=== PATIENT | male | born 2000 ===

== ENCOUNTER 2025-04-03 14:34 | Inpatient (IN) | payer OTHER ==
[~2025-04-03] VITALS: Ht 175.3 cm; Wt 75.0 kg
[2025-04-03] MEDS ORDERED: Ondansetron 4 MG SoluTab MM PRN (15:45)
[2025-04-03] MEDS ORDERED: Polyethylene Glycol 3350 17 gm PO PRN (15:45)
[2025-04-03] MEDS ORDERED: DiphenhydrAMINE HCl 50 MG/ML 1ML Vial IM PRN (15:50)
[2025-04-03] MEDS ORDERED: LORazepam 2 MG/ML 1ML Injection IM PRN (15:50)
[2025-04-03] MEDS ORDERED: FLU VACC TS2025-26(6MOS UP)/PF 45 MCG/0.5 ML SYRINGE IM SCH (15:50)
[2025-04-03] MEDS ORDERED: Haloperidol Lactate Inj. 5 MG/ML Injection IM PRN (15:50)
[2025-04-03] MEDS ORDERED: Aluminum Hydroxide 320MG/5ML 473 ML PO PRN (15:50)
--- NOTE | 2025-04-03 16:28 | NUR ---
PRN ATIVAN, BENADRYL, AND HALODOL GIVEN FOR MASS SCORE GREATER THAN 9. [facility] CALLED AND STATED THAT PATIENT WAS SPITTING AND HITTING VAN HANSEN, REQUESTED EXTRA STAFF. ON ARRIVAL PT GREATED BY [facility] RNS AND STAFF. HE WAS ABLE TO AGREE TO REMAIN CALM WHEN WE OPENED VAN DOOR. HE WAS ABLE TO FOLLOW INSTUCTIONS. HE APPEARED ANXIOUS AND JUMPY. PT TENSE AND APPEARED GAURDED AROUND STAFF. THIS RN OFFERED MEDICATION TO HELP WITHH TRANSITION. PT ACCEPTED IM B52 GIVEN IN LEFT AND RIGHT DELTOID. PT TOLERATED WELL
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
[2025-04-03] MEDS ORDERED: Guaifenesin/Dextromethorphan Syrup 5 ML UDC PO ONE (17:00)
[2025-04-03] MEDS ORDERED: Guaifenesin/Dextromethorphan Syrup 5 ML UDC PO PRN (17:10)
--- NOTE | 2025-04-04 03:55 | NUR ---
HALDOL, BENEDRYL AND ATIVAN GIVEN PO AT 0343 FOR AGGRESSIVE POSTURING TOWARDS THE NURSING STAFF. SECURITY PRESENT AT THE TIME AND FOR APPROXIMATELY 20 MINUTES AFTER THE EVENT.
--- NOTE | 2025-04-04 04:34 | NUR ---
Patient slept through the evening until snack time and briefly got up for that. When asked about SI,HI and AVTH, the patient wouldn't give appropriate answers. he stated "you are not a doctor, so you don't need to know". Patient then promptly went back to bed. At 0333, patient came to the desk asking for a snack and a drink. When told he would only get a drink, he agreed to this, then poured his water in a line all the way down the pickering. He threatened to "sock something up" then began spitting on the floor. When this RN and the MHA got down to his room, he began saying that we were both going to and hissing at us. Security was called and an oral dose of Haldol, Ativan and Benedryl were given to assist in calming the patient. Security stayed at the door of the patient's room until he fell back to sleep. Will continue close observation every 15 minutes for safety and comfort per unit protocol
[2025-04-04 08:44] VITALS: BP 142/131
[2025-04-04] MEDS ORDERED: Multivitamins 1 Tab PO SCH (09:00)
--- NOTE | 2025-04-04 11:57 | NUR ---
PRN INFORMATION PT CAME TO RN DEST APPROX 0830, STANDING THERE STARING AT STAFF NOT SAYING ANYTHING. HE STARTED COUGHING, HE WAS ASKED TO STEP AWAY FROM THE DESK AND TO COVER HIS FACE, HE SPIT SNOT ONTO THE FLOOR, ASKED HIM TO CLEAN IT UP. HE WALKED UP AND DOWN THE BUSTILLO AND STARTED YELLING. HE STOOD IN THE DOORWAY OF ROOM 603 AND SPIT SNOT INTO THE ROOM ON THE FLOOR. WHEN ASKED WHY HE DID THAT, HE STATED "OH, I THOUGHT IT WAS MY ROOM" JUST BEFORE BKFT "I NEED SOMETHING TO CALM ME DOWN". THIS WAS 10ish MINUTES AFTER THE SAME WAS OFFERED TO HIM. HE STOOD CALMLY WHILE RECEIVING IM ATIVAN, HALDOL AND BENEDRYL AND THEN WENT TO BKFT. DURING BKFT HE WAS VERY DISRUPTIVE, PEERS WERE GETTING AND MOVING AWAY FROM HIM. HE STATED "WHAT THE FUCK IS THIS, IS THIS ALL I GET". THIS RN EXPLAINED TO PT THAT HE WAS RECEIVING DOUBLE PORTIONS OF FOOD. PT CONTINUED "YOU EXPECT ME TO EAT THIS SHIT, THIS IS THE [facility] AND THIS FOOD IS FUCKING DISGUSTING". HE SPENT TIME STABBING AT HIS FOOD, STIRRING IT AROUND, MAKING A MESS, SPITTING SNOT INTO HIS FOOD AND THEN EATING IT. PT THEN ALEKSANDER TO HIS ROOM AND SLEPT UNTIL 1030ish. HE CAME TO RN DESK WANTING FOOD. HE WAS TOLD SNACK WOULD BE AT 1045. HE SPIT ON THE FLOOR, ON THE WALL INFRONT OF CASTING MACHINE OPERATOR DESK. HE WAS GIVEN TISSUE TO CLEAN IT UP WHICH HE DID. HE WAS OFFERED ZYPREXA. HE WAS GIVEN 20 MG PO ZYPREXA, DUMPED THE REST OF THE WATER ON THE FLOOR AND THEN WENT TO SNACK. HE IS PRESENTLY SLEEPING IN HIS ROOM.
--- NOTE | 2025-04-04 15:28 | NUR ---
PRN INFORMATION PT SLEPT THROUGH LUNCH, HE WAS OFFERED TO GET UP x4 TIMES. ON THE 4TH TIME HE ROLLED OVER AND STATED TO THIS RN "I DON'T WANT LUNCH". AT 1440 HE WOKE AND CAME TO RN STATION. STATED "I WANT MY BKFT" HE WAS INFORMED THAT HE HAD BKFT THIS MORNING BUT THAT HE MISSED LUNCH. HE SCREAMED "I DIDN'T GET ANY FUCKING BKFT" EXPLAINED TO PT THAT HE MISSED LUNCH. HE STARTED PUNCHING THE WALL AND THEN SLAMING HIS FOREHEAD INTO THE PLEXIGLASS AT THE CONTINUITY DIRECTOR DESK. HE THEN LUNGED AT THE DESK AND IT APPEARED HE WAS GOING TO TRY AND COME OVER THE BARRIER. PER DIRECTOR, PT WAS GIVEN A SANDWICH AND CUPCAKE. HE WAS COOPERATIVE AND TOOK AN ORAL ATIVAN, HALDOL AND BENEDRYL WE WERE OUT OF IM ATIVAN. HE WAS VERBALIZING RACIAL SLURS TO STAFF "YOU ALL A BUNCH OF DUMB ASS NIGGERS" PT IS BACK IN HIS ROOM AND APPEARS TO BE SLEEPING AT THIS TIME.
--- NOTE | 2025-04-04 17:49 | NUR ---
SHIFT SUMMARY PLEASE SEE PREVIOUS LAST 2 ENTRIES. SINCE LAST ENTRY PT HAS CONTINUED TO SLEEP. THIS RN ATTEMPTED TO WAKE PT FOR DINNER, KNOCKED LOUDLY, CALLED HIS NAME, TELLING HIM IT WAS DINNER, SHOOK HIS FOOT, HE MOVED SLIGHTLY AND CONTINUED TO SNORE. PER DIRECTOR, WE ALLOWED HIM TO SLEEP AND WHEN HE DOES WAKE, FEED HIM NO MATTER WHAT TIME IT IS AND OFFER MEDS AT THE SAME TIME. THERE WAS NO OFFICAL PATIENT ASSESSMENT BY THIS RN TODAY.
--- NOTE | 2025-04-04 20:41 | NUR ---
At 2015, Patient MASS score was 9. Oral doses of Ativan, Haldol and Diphenhydramine were given as well as patient's scheduled dose of 10mg Zyprexa. Patient tolerated well and came to kitchen to have a snack and call his mother, Gina. After snack, patient went back to bed. Will continue close monitoring every 15 minutes for safety and comfort per unit protocol
--- NOTE | 2025-04-05 04:38 | NUR ---
PATIENT SLEEPING AT STAART OF SHIFT. THEN, AT APPROXIMATELY 1999, PATIENT WOKE AND CAME OUT OF HIS ROOM, AND ASKED FOR FOOD AND THE PHONE. WHILE THE MHA WAS GETTING FOOD, THIS RN RETRIEVED THE PHONE FOR HIM TO CALL HIS MOTHER. ORAL HALDOL, DIPHENHYDRAMINE AND ATIVAN WITH HIS HS ZYPREXA GIVEN TO PATIENT FOR A MASS SCORE OF 9 WHICH DID SEEM TO CALM PATIENT AND HE WAS ABLE TO GO BACK TO ROOM AND FALL ASLEEP WITHIN 20-30 MINUTES. PATIENT HAS BEEN SLEEPING SINCE. WILL BE MONITORING HIM EVERY 15 MINUTES FOR SAFETY AND COMFORT PER UNIT PROTOCOL.
--- NOTE | 2025-04-05 09:12 | NUR ---
NURSE NOTE PT AT NURSES STATION THIS AM, JUST AFTER WAKING UP, USING AGRESSIVE POSTURING AND KEEPING HIS ARMS WIDE. SECURITY ON THE UNIT AT THIS TIME. HE HAS AN ANGRY TONE WITH TRANSGENTIAL SPEAKING. HE DOES STATE THAT HE IS REFUSING ALL MEDS, AND HE C/O "HAULLUCINATING." PT DID EAT BREAKFAST. STAFF MADE MULTIPLE ATTEMPTS TO MEDICATE PT. HE EVENTUALLY DECIDED TO TAKE THE SCHEDULED MEDS, BUT NOT THE B52. HE THEN THREW THE MED CUP AND WATER CUP DOWN THE HALLWAY. HE SPIT ON THE FLOOR MULTIPLE TIMES AND WIPED HIS SPUTUM ON THE WALL OF HIS ROOM. HE STOMPS AT STAFF IF TO INTIMIDATE THEM. HE USES THE MARKERS TO COLOR HIS FACE.
[2025-04-05] MEDS ORDERED: Haloperidol Lactate Inj. 5 MG/ML Injection IM PRN (09:50)
--- NOTE | 2025-04-05 17:08 | NUR ---
SHIFT SUMMARY PT STARTED OFF THIS AM WITH ELEVATED BEHAVIORS, YELLING, KICKING HANSEN, SPITTING ALL OVER THE UNIT SEVERAL TIMES, ANTAGONISTIC POSTURING TOWARDS STAFF, SMEARING FOOD INTO THE FLOOR AFTER ASKING FOR IT, ATTEMPTING TO OPEN ALL THE DOORS OUT OF THE UNIT, SLAMMING THE DOOR TO HIS ROOM MULTIPLE TIMES, AND THROWING OBJECTS DOWN THE HALLWAY. PT WAS GIVEN SEVERAL PRN MEDICATIONS FOR AGITATION AND MULTIPLE ATTEMPTS WERE MADE BY ALL STAFF MEMEBERS TO REDIRECT AND CALM PT, THROUGHOUT THE ENTIRE SHIFT. SEE MAR AND MASS SCORES FOR SPECIFIC TIMES AND MASS SCALES. AT ONE POINT PT SPIT A LARGE AMOUNT OF SPUTUM ON THE NURSE STATION SAFETY GLASS AND RUBBED IT AROUND WITH HIS BARE HANDS. AFTER BEING TOLD BY THIS RN THAT WAS NOT APPROPRIATE BEHAVIOR FOR THE UNIT AND HE NEEDS TO STOP SPITTING EVERYWHERE, HE SATES "SORRY" AND WALKED BACK TO HIS ROOM WHILE KICKING THE WALL ON THE WAY DOWN. PT TOOK A NAP AT LUNCH TIME, AT WHICH TIME HE BEGAN TO COUGH AND VOMIT THICK SPUTUM. HE WAS ASSISTED WITH A BED CHANGE AND SCRUB CHANGE, AND WAS MEDICATED WITH PRN ZOFRAN. PT SLEPT MORE AND THEN GOT UP FOR SNACK. AFTER WHICH HE RETURNED TO BED AND CONTINUES TO REST QUIETLY WITH CONTINUED Q15 MIN CHECKS PERFORMED. PLEASE SEE PREVIOUS NOTE ALSO.
--- NOTE | 2025-04-05 19:50 | NUR ---
PRN NOTE. AT 1915, HALDOL, DIPHENHYDRAMINE AND ATIVAN GIVEN FOR MASS SCORE OF 9.
--- NOTE | 2025-04-06 00:19 | NUR ---
PRN NOTE At 8433, patient was given one Zyprexa Zydis for mass score of 7.
--- NOTE | 2025-04-06 03:38 | NUR ---
PRN NOTE Oral dose Ativan, diphenhydramine and haldol given at 0330 for MASS score of 8.
--- NOTE | 2025-04-06 04:06 | NUR ---
SHIFT SUMMARY Patient woke shortly after shift change and was demanding food. During his snack, he was given an oral dose of Ativan, diphenhydramine and haldol. patient voluntarily took the medications along with his new HS medications as well. He slept fairly well until approximately 2330 when he woke and acted the same as earlier wanting food and ignoring personal space when asking. Zyprexa zydis 10mg was given per jul orders. He then fell back to sleep until 0330 when he received one more combination of Ativan, diphenhydramaine and haldol for a mass score of 9. Patient took medications easily after his snack, and went back to bed. Will continue close monitoring every 15 minutes for comfort and safety per unit protocol.
--- NOTE | 2025-04-06 08:15 | NUR ---
Pt approached nursing desk upon waking. He immediately asks about leaving because "the doctor told me I could go today". He wanted to use the phone to call his father about a ride. We asked him to wait until we knew what was happening- Patient punched the glass divide on the nursing desk. Patient pacing, posturing, threatening speech. Security was called and came onto the unit as back up. His nurse gave him his morning meds plus haldol benedryl and ativan. Security left the unit. Patient continues to pace, punching the flood as he paces.
--- NOTE | 2025-04-06 08:26 | NUR ---
The provider is on the unit to see the patient. The patient denies have any suicidal thoughts, he denies homicidal thoughts and denies the desire to hurt anybody else. The buyer planner is talking with him about acceptable behavior during transportation. The patient took his medications this am and is looking forward to leaving here.
[2025-04-06] MEDS ORDERED: RISP2 PO (08:33)
[2025-04-06] MEDS ORDERED: DEPAKOTE500 M2 PO (08:33)
--- NOTE | 2025-04-06 09:09 | NUR ---
IMPORTANT DISCHARGE INFORMATION PATIENT TO BE DISCHARGED TODAY. [facility] TO PICK HIM UP THIS MORNING. THEY WILL CALL US BACK WITH AN ETA FOR TRANSPORT. THEIR NUMBER IS . FOLLOW UP WITH [facility] GIVEN FOR SHELTERS, FOOD PANTRIES, AND FREE PHONE SHERVICES. PATIENT DISCHARGED WITH EMERGENCY BACK PACK, FOOD, WATER, WINTER CLOTHING, RAIN PONCHO, AND BLANKET. PHARMACY: [facility] REQUESTED BY PATIENT IN [place]
--- NOTE | 2025-04-06 09:31 | NUR ---
Discharge note Patient was discharged at 0927 this am, after reviewing his discharge packet. Packet included a med list, follow up mental health information and patient education. Medication scripts were faxed to [facility] in [place]. Patient denies feeling suicidal or homicidal. Patients belongings were returned to him and he was provided transportation via cab.
== END 2025-04-06 09:27 | disposition home or self-care (01) | DRG 883 ==
LOC: BHU 14:34
PROVIDERS: ADMIT Psychiatry & Neurology Psychiatry
DX: F60.2 Antisocial personality disorder (principal); Z59.01 Sheltered homelessness; F29 Unspecified psychosis not due to a substance or known physiological condition; R45.1 Restlessness and agitation; F19.10 Other psychoactive substance abuse, uncomplicated; Z91.013 Allergy to seafood; Z79.899 Other long term (current) drug therapy; Z23 Encounter for immunization
CPT/HCPCS: A9270; J1200; J1630; J2060